=== PATIENT | female | born 1980 | race Hispanic/Latino ===

== ENCOUNTER 2020-01-07 19:48 | Inpatient (IN) | payer OTHER ==
[2020-01-07 21:37] LABS: Hematocrit 36.3 % (30.3-42.9); Mean Corpuscular HGB Conc 33 % (30-34); Mean Corpuscular Volume 89 fl (79-97); Platelet Count 285 K/mm3 (140-440); Red Blood Count 4.11 M/mm3 (3.65-5.03); Red Cell Distribution Width 15.5 % (13.2-15.2)
[2020-01-07 21:42] VITALS: BP 119/67
[2020-01-07 22:37] LABS: Basophils % (Manual) 0 % (0.0-1.8); Eosinophils % (Manual) 0 % (0.0-4.3); Myelocytes # (Manual) 0.3 K/mm3; Total Cells Counted 100
[2020-01-07 22:38] LABS: Anisocytosis 1+
[2020-01-07] MEDS ORDERED: LACTATED RINGERS 1,000 ML ONE (22:47)
[2020-01-07] MEDS ORDERED: ePHEDrine SULFATE 50 MG/1 ML INJ IV PRN (23:27)
[2020-01-07] MEDS ORDERED: TERBUTALINE 1 MG/1 ML INJ SUB-Q PRN (23:27)
[2020-01-07] MEDS ORDERED: ONDANSETRON 4 MG/2 ML INJ IV PRN (23:27)
[2020-01-07] MEDS ORDERED: ACETAMINOPHEN 325 MG TAB PO PRN (23:27)
[2020-01-07] MEDS ORDERED: MINERAL OIL 30 ML ORAL LIQD PO PRN (23:27)
[2020-01-07] MEDS ORDERED: DEXTROSE 50% IN WATER (25GM) 50 ML SYRINGE IV PRN (23:27)
[2020-01-07] MEDS ORDERED: METHYLERGONOVINE MALEATE 0.2 MG/ML VIAL IM PRN (23:27)
[2020-01-07] MEDS ORDERED: fentaNYL 100 MCG/2 ML INJ IV PRN (23:27)
[2020-01-07] MEDS ORDERED: LIDOCAINE (2%) 20 MG/1 ML VIAL 20 ML MDV INFILTRATI ONE (23:27)
[2020-01-07] MEDS ORDERED: OXYTOCIN 20 UNIT/1000ML DRIP 20 UNITS/1,000 ML BAG IV SCH (23:45)
[2020-01-07] MEDS ORDERED: LACTATED RINGERS 1,000 ML IV SCH (23:45)
--- NOTE | 2020-01-08 00:03 | History and Physical Report ---
History of Present Illness Date of examination: 01/07/20 Chief complaint: Labor, nausea and vomiting History of present illness: This is a 39 year-old female who received PNC at [facility] who presents complaining of nausea, vomiting and labor. She was evaluated at [facility] yesterday(01/06/20)for labor and was told she was 1cm dilated. She was then evaluated at [facility] today(01/07/20) where she was 3/60/-3). She states she didn't think she could make it back to [place] d/t contractions with nausea and vomiting therefore presented to [facility] by private vehicle and exam revealed she was 5cm dilated. It took several hours before her records were received. Her has been complicated by: GDM, Cholestasis, PUPPPS, pyelectasis and LGA. 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: denies: chlamydia, gonorrhea, hepatitis B, hepatitis C, herpes, HIV, syphilis, trichomonas Social history: - Obstetrical History Expected Date of Delivery: 02/06/20 Actual Gestation: 35 Week(s) 6 Day(s) : 11 Para: 6 Hx # Term Pregnancies: 4 Number of Pregnancies: 2 Spontaneous Abortions: 3 Induced : 1 Number of Living Children: 6 Medications and Allergies Allergies Allergy/AdvReac Type Severity Reaction Status Date / Time enoxaparin [From Lovenox] Allergy Hives Verified 01/07/20 21:19 heparin Allergy Hives Verified 01/07/20 21:19 Penicillins Allergy Hives Verified 01/07/20 21:19 Sulfa (Sulfonamide Allergy Hives Verified 01/07/20 21:19 Antibiotics) Home Medications Medication Instructions Recorded Confirmed Last Taken Type Atarax 50 mg PO QHS 01/07/20 01/07/20 01/06/20 History Vitamin 1 tab PO DAILY 01/07/20 01/07/20 01/06/20 History Ursodiol 250 mg PO TID 01/07/20 01/07/20 01/07/20 History predniSONE 30 mg PO DAILY 01/07/20 01/07/20 01/07/20 History Insulin NPH Human Isophane 01/08/20 01/08/20 History [HumuLIN N] Active Meds: Active Medications Acetaminophen (Tylenol) 650 mg PO Q6H PRN PRN Reason: Pain, Mild (1-3) Dextrose (D50w (25gm) Syringe) 50 ml IV Q30MIN PRN; Protocol PRN Reason: Hypoglycemia Ephedrine Sulfate (Ephedrine Sulfate) 10 mg IV Q2M PRN PRN Reason: Hypotension Fentanyl (Sublimaze) 100 mcg IV ONCE PRN PRN Reason: Pain,Severe (7-10) LABOR PAIN Lactated Ringer's (Lactated Ringers) 1,000 mls @ 125 mls/hr IV DIRECT XENIA Oxytocin/Sodium Chloride (Pitocin/Ns 20 Unit/1000ml Drip) 20 units in 1,000 mls @ 125 mls/hr IV DIRECT XENIA Clindamycin HCl (Cleocin 900 Mg/50 Ml) 900 mg in 50 mls @ 100 mls/hr IV Q8HR XENIA; Protocol Lidocaine (Xylocaine 2%) 20 ml INFILTRATI ONCE ONE Stop: 01/07/20 23:28 Methylergonovine Maleate (Methergine) 0.2 mg IM ONCE PRN PRN Reason: Uterine Bleeding Mineral Oil (Mineral Oil) 30 ml PO QHS PRN PRN Reason: Constipation Miscellaneous Medication (Prednisone) 30 mg PO DAILY XENIA Ondansetron HCl (Zofran) 4 mg IV Q8H PRN PRN Reason: Nausea And Vomiting Terbutaline Sulfate (Brethine) 0.25 mg SUB-Q ONCE PRN PRN Reason: Hyperstimulation/Hypertonicity Review of Systems All systems: negative Gastrointestinal: nausea, vomiting Genitourinary: contractions - Vital Signs Vital signs: Vital Signs Temp Pulse BP 98.4 F 93 H 127/64 01/07/20 20:00 01/07/20 20:00 01/07/20 20:00 Temp Pulse Resp BP Pulse Ox 98.3 F 100 H 16 119/67 96 01/07/20 21:40 01/07/20 23:47 01/07/20 21:40 01/07/20 21:41 01/07/20 23:47 - Physical Exam Breasts: Positive: deferred Cardiovascular: Regular rate Lungs: Positive: Normal air movement Abdomen: Negative: tenderness Genitourinary (Female): Positive: normal external genitalia, normal perenium Vulva: both: normal Uterus: Positive: enlarged. Negative: tender Extremities: Positive: edema (1+) - Obstetrical FHR: category 1 Uterine Contraction Monitor Mode: External Cervical Dilatation: 5 Cervical Effacement Percentage: 60 station: -3, midposition, soft, ballotable Uterine Contraction Pattern: Irregular Results Result Diagrams: 01/07/20 21:00 Abnormal lab results 01/07/20 Range/Units 21:00 WBC 16.7 H (4.5-11.0) K/mm3 RDW 15.5 H (13.2-15.2) % Seg Neuts % (Manual) 86.0 H (40.0-70.0) % Lymphocytes % (Manual) 8.0 L (13.4-35.0) % Seg Neutrophils # Man 14.4 H (1.8-7.7) K/mm3 All other labs normal. Assessment and Plan - Patient Problems (1) 35 weeks gestation of Current Visit: Yes Status: Acute (2) labor in third trimester Current Visit: Yes Status: Acute Plan to address problem: +fFN on 01/06/20; received BMZ on 01/06/20 and 01/07/20. Stopped 17OHP at 28weeks Advanced dilation She did not have a GBS performed, states she was with a previous and was given Clindamycin. Will start Clindamycin now (3) Gestational diabetes mellitus in , insulin controlled Current Visit: Yes Status: Acute Plan to address problem: Normal 1ghtt at 10weeks and 28weeks,CMP performed 12/24 d/t cholestasis revealed BS of 256. She failed diet control and was started on Insulin. Will Accucheck q2h and adjust insulin accordingly for BS > 140 x2 (4) Cholestasis during in third trimester Current Visit: Yes Status: Acute Plan to address problem: Check CMP She took her prednisone 30mg today, will continue same and then stress dose steroids with delivery (5) Pyelectasis of fetus on ultrasound Current Visit: Yes Status: Acute Plan to address problem: NICU aware (6) Supervision of elderly primigravida, third trimester Current Visit: Yes Status: Acute Plan to address problem: [place] low probability MSAFP negative (7) H/O premature delivery Current Visit: Yes Status: Acute (8) Headache, migraine Current Visit: Yes Status: Acute Plan to address problem: Now uses Imitrex prn (9) Depression, major, recurrent, mild Current Visit: Yes Status: Acute (10) Domestic problems Current Visit: Yes Status: Acute Plan to address problem: Per her PNR she's concerned about her ex- returning to [place] from [place] and taking his kids. Will need CM after delivery (11) LGA (large for gestational age) fetus Current Visit: Yes Status: Acute Plan to address problem: Pelvis proven to 9lb 14oz (1998). EFW 7lb 5oz on 01/02/20(>90%ile)
--- NOTE | 2020-01-08 00:04 | Consultation ---
Consult Note - Parent Education I met with parent(s) and discussed the following:: Need for NICU admission, Poss ible need for IV fluids/TPN and IV antibiotics, Possible need for umbilical lines, Importance of providing breast milk & encouraged pumping aft delivery, Need to monitor for jaundice Parent(s) demonstrated understanding of all the information:: Yes Additional Comment: Discussed with mother need for 4-6 hour transition period due to gestation and GDM status. Mother states she is 36 weeks at midnight and wants to keep with her and exclusively breast feed. Explained that if respiratory status is stable, can be skin to skin and attempt to nurse and then we can monitor blood glucose levels. Also discussed possibility that will need to be in NICU for monitoring O2 levels. Mother disappointed but verbalized understanding. Mother also requests infant does not have a bottle or pacifier Assessment and Plan - Assessment Gestation:: 35 Baby's gender: Male - Plan Plan: Will attend delivery Please call NICU with questions
[2020-01-08] MEDS ORDERED: FAMOTIDINE 20 MG/2 ML INJ IV SCH (01:00)
[2020-01-08] MEDS ORDERED: METOCLOPRAMIDE 10 MG/2 ML INJ IV SCH (02:00)
[2020-01-08 02:11] LABS: Alanine Aminotransferase 78 units/L (7-56); Albumin 3.4 g/dL (3.9-5); BUN/Creatinine Ratio 18; Blood Urea Nitrogen 7 mg/dL (7-17); Calcium 9.1 mg/dL (8.4-10.2); Hemolysis Index 3
--- NOTE | 2020-01-08 08:12 | Event Note ---
Date: 01/08/20 (Pt upset because she could not have IOL) Pt is upset because we would not induce her. " Stephan has my last period wrong. They have it as May 02, but actually it was April 07. My baby is measuring big so I know that I am due now". She is very upset and wants to leave the hospital. I explained that she would have to leave against medical advice. Spoke with patient regarding being 35.5wks based off the records that we received from OBGYN, which would make her premature, and the standards for not inducing labor until 39 wks or after. Discussed that inducing her at this time is not recommended unless there is a medical reason to be induced. Also spoke to patient regarding the risk of if she leaves the hospital. Pt ve rbalized understanding, but stated that she would rather go home because she has children at home that she has to look after and she can not leave them with a steel inspector for 5 days or more. Pt signed out against medical advice.
--- NOTE | 2020-01-08 08:15 | Discharge Summary ---
Providers - Providers Attending physician: SHARA MCCRACKEN 01/07/20 23:27 Consult to Physician [CONS] Urgent Comment: Consulting Provider: MAYKEL CORBIN Physician Instructions: Reason For Exam: LABOR GDM Primary care physician: FACILITY SERVICE ASSOCIATE Hospitalization Hospital course: Pt is 35.5 wks who presented to triage due to contractions. By records we received she has a due date of 02/07/2020. When explained to patient that she will not be induced at this time, pt became upset and decided that she did not want further medical treatment. She has decided to sign out against medical advice. She has also refused any discharge instructions. Disposition: [id number]-07 LEFT AGAINST MED ADVICE Plan - Provider Discharge Summary Additional instructions: [] Smoking cessation referral if applicable(refer to patient education folder for contact #) [] Refer to [facility] Booklet Call your doctor immediately for: * Fever > 100.5 * Heavy vaginal bleeding ( >1 pad per hour) * Severe persistent headache * Shortness of breath * Reddened, hot, painful area to leg or breast * Drainage or odor from incision. * Keep incision clean and dry at all times and follow doctor's instructions regarding bathing/showering - Follow up plan Follow up: PRIMARY CARE, [Primary Care Provider] - 7 Days
[2020-01-08] MEDS ORDERED: predniSONE 10 MG TAB PO SCH (10:00)
[2020-01-08] MEDS ORDERED: PREDNISONE 30 MG PO SCH (10:00)
== END 2020-01-08 11:16 | disposition left against medical advice (07) | DRG 831 ==
LOC: TRG 19:48 → APU 19:53 → LD 22:20 → TRG 23:28
PROVIDERS: ADMIT Obstetrics & Gynecology; ATTEND Obstetrics & Gynecology
DX: O99.353 Diseases of the nervous system complicating pregnancy, third trimester (principal); K83.1 Obstruction of bile duct; F33.0 Major depressive disorder, recurrent, mild; O26.613 Liver and biliary tract disorders in pregnancy, third trimester; O60.03 Preterm labor without delivery, third trimester; G43.909 Migraine, unspecified, not intractable, without status migrainosus; O24.414 Gestational diabetes mellitus in pregnancy, insulin controlled; O99.343 Other mental disorders complicating pregnancy, third trimester; Z3A.35 35 weeks gestation of pregnancy; O09.523 Supervision of elderly multigravida, third trimester; Z63.0 Problems in relationship with spouse or partner; Z88.0 Allergy status to penicillin; Z88.2 Allergy status to sulfonamides; Z88.8 Allergy status to other drugs, medicaments and biological substances
CPT/HCPCS: 36415; 80053; 82150; 82962; 83036; 83690; 85007; 85025; 86592; 86762; 86850; 86900; 86901; 87902; G0378; J2405; J2765; J7120; J7512